=== PATIENT | male | born 1960 | race Caucasian/White ===

== ENCOUNTER → 2018-01-01 11:00 | Outpatient (CLI) | payer OTHER, SELFPAY ==
[2018-01-05 05:21] LABS: PSA, Free 0.54 ng/mL; Prostate Specific Ag 1.5 ng/mL (0.0-4.0)
== END ==
PROVIDERS: PCP Family Medicine; Visit Provider Urology
DX: R97.20 Elevated prostate specific antigen [PSA] (principal)
CPT/HCPCS: 36415; 84153; 84154

== ENCOUNTER → 2020-04-07 14:07 | Outpatient (CLI) | payer OTHER, SELFPAY ==
--- NOTE | 2020-04-07 14:16 | XR_ITS ---
PROCEDURE: XR HIP LT 2-3V W/PELVIS CLINICAL INDICATION: LT hip pain COMPARISON: No exams were available for comparison FINDINGS: No fracture or dislocation is evident. No significant degenerative change. There is mild sclerotic change of the left femoral head raising the possibility of avascular necrosis. The right femoral head and neck appear intact. The iliac bones and pubic bones appear normal. The SI joints and symphysis pubis are normal.. IMPRESSION: Possible mild avascular necrosis left hip, possibly follow-up of bone scan or CT scan of the pelvis would be helpful for additional evaluation Dictated by: Dr. Kev Solomon MD 04/07/2020 14:47 Dr. Kev Solomon MD in [place] 04/07/2020 14:47
== END ==
PROVIDERS: PCP Family Medicine; Visit Provider Orthopaedic Surgery
DX: M25.552 Pain in left hip (principal)
CPT/HCPCS: 73502

== ENCOUNTER → 2020-04-20 09:19 | Outpatient (CLI) | payer OTHER, SELFPAY ==
[2020-04-20 10:28] LABS: Blood Urea Nitrogen 14 mg/dl (9-20); Estimated Glomerular Filt Rate 98 ml/min (>60); GFR (African American) 119 ML/MIN (>60)
== END ==
PROVIDERS: Visit Provider Orthopaedic Surgery
DX: M87.052 Idiopathic aseptic necrosis of left femur (principal)
CPT/HCPCS: 36415; 82565; 84520

== ENCOUNTER → 2020-04-22 07:45 | Outpatient (CLI) | payer OTHER, SELFPAY ==
--- NOTE | 2020-04-22 07:45 | MR_ITS ---
PROCEDURE: MR HIP LT WO/W CON Referring Doctor: Sabi Young Patient Age:60Y CLINICAL INDICATION: left hip pain. Left hip pain for 3 months no recent injury or fall bilateral AVN. COMPARISON: CR XR HIP LT 2-3V W/PELVIS from 04/07/2020 TECHNIQUE: Multiplanar multi sequence imaging on 1.5 justo MRI. Pre and postcontrast imaging performed T1 fat suppression coronal and axial images postcontrast-17 mL ProHance used for postcontrast images IV contrast utilized FINDINGS: Findings are compatible with bilateral avascular necrosis of the femoral heads superiorly with additional prominent bone edema left hip/left trochanteric region Symptomatic LEFT HIP.: Geographic area of abnormal signal reflecting generous area AVN involving cap left femoral head. This areaand measures up to 3.6 cm transverse 2.4 cm height. Within this circumscribed area there is lower density fat signal on T1 images . (It appears a true T2 weighted images is no longer included of but this area somewhat mixed density on STIR images and thus suspect stage class A AVN here on left) However in addition on the left note prominent/significant bone reactive changes/and bone edema surrounding this area and continuing along through the left femoral neck, and extending to the trochanteric region and subtrochanteric region.. These reflect rather prominent bone edema/reactive bone changes here.. Along with this appearance also question a subtle questionable low signal transverse line at trochanteric/subtrochanteric region-could not totally exclude a developing stress fracture (coronal image 19 post-contrast fat suppression T1 image set) There is a joint effusion at the left hip which also correlates with increased pain and symptoms related AVN,. I would also note subtle slight reactive soft tissue edema surrounding the subtrochanteric region, axial STIR image 22-19 coronal STIR postcontrast image 17, 18 Postcontrast images show mild enhancement throughout these areas of edema and surrounding soft tissues as well reflecting the regional inflammation Difficult to totally exclude infection with the overall appearance and enhancement but most likely reactive bone changes from AVN but close follow-up and clinical correlation required RIGHT HIP: Geographic area of signal abnormality at the cap of right femoral head compatible with AVN right femoral head There is a low signal line about the margin of this area with fat density within it. No collapse of femoral head although. I do not have a true T2 weighted image for ideal staging, suspect most likely grade A AVN. But this area measuring up to 3.4 cm transverse 2 cm height maximally. It is not as large as the area on the left and we do not see the adjacent bone edema and the right femoral neck but trochanteric region unremarkable on right A generous wall thickness bladder warrants correlation with urinalysis but most likely reflects lack of distension. Moderate-sized high-signal prostate noted. Nonspecific Incidental diverticulosis sigmoid colon. Partially imaged what is visualized at the lower pelvic basin otherwise unremarkable. Iliac bones pubis superior and inferior ramus unremarkable. Remainder of visualized proximal femoral shafts below the subtrochanteric region otherwise appear satisfactory and IMPRESSION: Bilateral Avascular Necrosis Of Femoral Heads--most prominent findings seen at left hip, with associated prominent bone edema extending from left hip through left femoral neck-left trochanteric region -Specifically at left hip note prominent bone edema with joint effusion-these features at correlate with increased pain symptoms associated with AVN. The prominent bone edema and in
== END ==
PROVIDERS: PCP Family Medicine; Visit Provider Orthopaedic Surgery
DX: M87.052 Idiopathic aseptic necrosis of left femur (principal)
CPT/HCPCS: 73723; A9576

== ENCOUNTER → 2021-01-11 16:07 | Outpatient (CLI) | payer OTHER, SELFPAY ==
[2021-01-13 09:19] LABS: PSA, Free 0.54 ng/mL; Prostate Specific Ag 1.4 ng/mL (0.0-4.0)
== END ==
PROVIDERS: Visit Provider Urology
DX: N13.8 Other obstructive and reflux uropathy (principal); N40.1 Benign prostatic hyperplasia with lower urinary tract symptoms
CPT/HCPCS: 36415; 84153; 84154

== ENCOUNTER → 2021-02-13 13:31 | Outpatient (CLI) | payer OTHER, SELFPAY ==
--- NOTE | 2021-02-13 13:35 | XR_ITS ---
PROCEDURE: XR HIP LT 2-3V W/PELVIS CLINICAL INDICATION: LT hip pain COMPARISON: CR XR HIP LT 2-3V W/PELVIS from 04/07/2020 FINDINGS: No fracture or dislocation is evident. There has been interval change in the appearance of left hip from the previous study with a focal area of sclerosis of the femoral head by a radiolucent line suggesting beginning separation of the avascular fragment from the remainder of the femoral head. The avascular fragment approximates 1/3 of the volume of the femoral head. The right hip is intact. There are mild degenerate changes lower lumbar spine. IMPRESSION: Interval progression of avascular necrosis left hip compared with the previous study Dictated by: Dr. Kev Solomon MD 02/14/2021 08:53 Dr. Kev Solomon MD in [place] 02/14/2021 08:53
== END ==
PROVIDERS: PCP Family Medicine; Visit Provider Orthopaedic Surgery
DX: M25.552 Pain in left hip (principal); M87.052 Idiopathic aseptic necrosis of left femur
CPT/HCPCS: 73502

== ENCOUNTER → 2021-02-22 16:13 | Outpatient (CLI) | payer OTHER, SELFPAY ==
--- NOTE | 2021-02-22 16:16 | XR_ITS ---
PROCEDURE INFORMATION: Exam: XR Chest Exam date and time: 02/22/2021 4:16 PM Age: 60 years old Clinical indication: Other: Hypertension, HX of asthma; Patient HX: Patient to have hip surgery. ; Additional info: HX of high blood pressure, HX of asthma, preoperative TECHNIQUE: Imaging protocol: XR of the chest. Views: 2 views. COMPARISON: No relevant prior exams. FINDINGS: Lungs: Unremarkable. No consolidation. Pleural spaces: Unremarkable. No pleural effusion. No pneumothorax. Heart/Mediastinum: Unremarkable. No cardiomegaly. Bones/joints: Unremarkable. IMPRESSION: No acute cardiopulmonary disease.
--- NOTE | 2021-02-22 16:37 | ECG_ITS ---
APPROVED REPORT Exam: Resting ECG HR:72 bpm ECG Measurements Heart Rate 72 AXES TN 154 P 52 QRSd 96 QRS -21 QT 366 T 50 QTc 400 Conclusion Normal sinus rhythm Normal ECG Electronically signed by : John Nolasco MD 02/23/2021 22:38:28
[2021-02-22 17:21] LABS: Basophils # 0.1 K/mm3 (0-0.2); Basophils % 1.1 % (0.1-2.0); Eosinophils # 0.2 K/mm3 (0.0-0.4); Eosinophils % 2.1 % (0.1-12.0); Hematocrit 44.2 % (42.0-52.0); Hemoglobin 14.9 g/dL (14.1-18.0); Lymphocytes # 4.7 K/mm3 (0.7-4.5); Lymphocytes % 44.8 % (10-50); Mean Corpuscular HGB Conc 33.7 g/dL (31.8-35.4); Mean Corpuscular Hemoglobin 32.1 pg (27.0-31.2); Mean Corpuscular Volume 95.3 fl (80-94); Mean Platelet Volume 9.2 fl (7.4-10.4); Monocytes # 0.5 K/mm3 (0.1-1.0); Monocytes % 5.1 % (1.7-9.3); Neutrophils # 4.9 K/mm3 (1.8-7.8); Neutrophils % 46.9 % (37.0-80.0); Platelet Count 234 K/mm3 (142-424); Red Blood Count 4.64 M/mm3 (4.60-6.20); Red Cell Distribution Width 12.9 % (11.5-17.5); White Blood Count 10.5 K/mm3 (4.8-10.8)
[2021-02-22 17:28] LABS: INR 0.96 (0.9-1.1); Prothrombin Time 10.9 seconds (10.1-12.5)
[2021-02-22 17:37] LABS: Chloride 100 mmol/L (98-107)
[2021-02-22 17:38] LABS: Potassium 4.4 mmoL/L (3.5-5.1); Sodium 138 mmol/L (136-145)
[2021-02-22 17:40] LABS: Alanine Aminotransferase 33 U/L (12-78); Albumin Level 4.7 g/dl (3.5-5.0); Albumin/Globulin Ratio 1.7 (1.1-1.8); Alkaline Phosphatase 75 U/L (38-126); Anion Gap 15.4 mEq/L (5-15); Aspartate Amino Transferase 40 U/L (17-59); Bilirubin,Total 0.6 mg/dl (0.2-1.3); Blood Urea Nitrogen 11 mg/dl (9-20); Calcium 9.7 mg/dl (8.4-10.2); Carbon Dioxide 27 mmol/L (22.0-30.0); Cholesterol 225 mg/dl (140-200); Estimated Glomerular Filt Rate 168 ml/min (>60); GFR (African American) 204 ML/MIN (>60); Globulin 2.8 g/dL (1.3-3.2); Glucose 112 mg/dl (74-100); Total Protein,Serum 7.5 g/dl (6.3-8.2); Triglycerides 233 mg/dl (30-150); VLDL Cholesterol 47 mg/dL (0-40)
[2021-02-22 17:41] LABS: HDL Cholesterol 83 mg/dl (40-60)
[2021-02-22 17:48] LABS: Chol/HDL Ratio 2.7 (1-3.5)
[2021-02-22 17:52] LABS: Direct LDL Cholesterol 111.78 mg/dL (100-129)
[2021-02-22 18:11] LABS: Thyroid Stimulating Hormone 2.14 uIU/mL (0.465-4.68)
== END ==
PROVIDERS: PCP Family Medicine; Visit Provider Nurse Practitioner Family
DX: Z01.818 Encounter for other preprocedural examination (principal); I10 Essential (primary) hypertension; E78.2 Mixed hyperlipidemia; Z51.81 Encounter for therapeutic drug level monitoring
CPT/HCPCS: 36415; 71046; 80053; 80061; 84443; 85025; 85610; 93005

== ENCOUNTER → 2021-04-09 15:51 | Outpatient (CLI) | payer OTHER, SELFPAY ==
[2021-04-09 15:53] LABS: Microscopic, Urine URINE MICROSCOPIC (MICROSCOPIC)
[2021-04-09 16:18] LABS: Basophils # 0.1 K/mm3 (0-0.2); Eosinophils # 0.2 K/mm3 (0.0-0.4); Eosinophils % 2.1 % (0.1-12.0); Hemoglobin 14.6 g/dL (14.1-18.0); Lymphocytes # 5.1 K/mm3 (0.7-4.5); Lymphocytes % 46.7 % (10-50); Mean Corpuscular HGB Conc 34.8 g/dL (31.8-35.4); Mean Corpuscular Hemoglobin 32.3 pg (27.0-31.2); Mean Corpuscular Volume 92.9 fl (80-94); Mean Platelet Volume 8.7 fl (7.4-10.4); Monocytes # 0.6 K/mm3 (0.1-1.0); Monocytes % 5.2 % (1.7-9.3); Neutrophils # 4.9 K/mm3 (1.8-7.8); Platelet Count 207 K/mm3 (142-424); Red Blood Count 4.53 M/mm3 (4.60-6.20); Red Cell Distribution Width 12.8 % (11.5-17.5)
[2021-04-09 19:29] LABS: Chloride 100 mmol/L (98-107); Potassium 4.5 mmoL/L (3.5-5.1); Sodium 138 mmol/L (136-145)
[2021-04-09 19:31] LABS: Alanine Aminotransferase 29 U/L (12-78); Alkaline Phosphatase 67 U/L (38-126); Aspartate Amino Transferase 29 U/L (17-59); Bilirubin,Total 0.6 mg/dl (0.2-1.3); Blood Urea Nitrogen 15 mg/dl (9-20); Estimated Glomerular Filt Rate 114 ml/min (>60); GFR (African American) 138 ML/MIN (>60)
[2021-04-09 19:32] LABS: Albumin Level 4.7 g/dl (3.5-5.0); Albumin/Globulin Ratio 1.7 (1.1-1.8); Anion Gap 15.5 mEq/L (5-15); Calcium 9.6 mg/dl (8.4-10.2); Carbon Dioxide 27 mmol/L (22.0-30.0); Globulin 2.7 g/dL (1.3-3.2); Glucose 105 mg/dl (74-100); Total Protein,Serum 7.4 g/dl (6.3-8.2)
[2021-04-09 22:13] LABS: Appearance,Urine CLEAR (Clear); Bilirubin,Urine Negative (Negative); Blood, Urine Negative (Negative); Color,Urine YELLOW (Yellow); Glucose,Urine (UA) Negative (Negative); Ketones,Urine TRACE (Negative); Leukocyte Esterase,Urine Negative (Negative); Nitrate,Urine Negative (Negative); PH,Urine 6.5 (5.0-8.5); Protein,Urine Negative (Negative); Urobilinogen,Urine 0.2 EU/dl (0.2)
[2021-04-09 22:26] LABS: Bacteria,Urine Trace /lpf; RBC,Urine Occasional #/hpf (0-3); Sperm,Urine OCC /lpf; Squamous Epithelial Cell,Urine Occasional #/hpf (0-5)
== END ==
PROVIDERS: Visit Provider Orthopaedic Surgery
DX: Z01.818 Encounter for other preprocedural examination (principal); M87.059 Idiopathic aseptic necrosis of unspecified femur
CPT/HCPCS: 80053; 81001; 85025

== ENCOUNTER → 2021-04-21 09:40 | Outpatient (CLI) | payer OTHER, SELFPAY | PROVIDERS: Visit Provider Orthopaedic Surgery | DX: Z01.818 Encounter for other preprocedural examination (principal); Z11.52 Encounter for screening for COVID-19 | CPT/HCPCS: 36415; 86850; C9803; U0003; U0005 ==

== ENCOUNTER → 2021-06-13 16:02 | Outpatient (CLI) | payer OTHER, SELFPAY | PROVIDERS: Visit Provider Orthopaedic Surgery | DX: Z01.812 Encounter for preprocedural laboratory examination (principal) ==

== ENCOUNTER → 2021-06-16 09:56 | Outpatient (CLI) | payer OTHER, SELFPAY ==
[2021-06-16 10:12] LABS: Microscopic, Urine URINE MICROSCOPIC (MICROSCOPIC)
[2021-06-16 10:42] LABS: Basophils # 0.1 K/mm3 (0-0.2); Basophils % 0.7 % (0.1-2.0); Eosinophils # 0.2 K/mm3 (0.0-0.4); Eosinophils % 1.3 % (0.1-12.0); Hematocrit 42.9 % (42.0-52.0); Hemoglobin 14.5 g/dL (14.1-18.0); Lymphocytes # 4.7 K/mm3 (0.7-4.5); Lymphocytes % 36.5 % (10-50); Mean Corpuscular HGB Conc 33.9 g/dL (31.8-35.4); Mean Corpuscular Hemoglobin 31.7 pg (27.0-31.2); Mean Corpuscular Volume 93.6 fl (80-94); Mean Platelet Volume 8.5 fl (7.4-10.4); Monocytes # 0.8 K/mm3 (0.1-1.0); Monocytes % 6.3 % (1.7-9.3); Neutrophils # 7.1 K/mm3 (1.8-7.8); Neutrophils % 55.2 % (37.0-80.0); Platelet Count 207 K/mm3 (142-424); Red Blood Count 4.58 M/mm3 (4.60-6.20); Red Cell Distribution Width 12.6 % (11.5-17.5); White Blood Count 12.8 K/mm3 (4.8-10.8)
--- NOTE | 2021-06-16 10:58 | XR_ITS ---
PROCEDURE INFORMATION: Exam: XR Left Hip Exam date and time: 06/16/2021 10:58 AM Age: 61 years old Clinical indication: Screening exam; Pre-op; Additional info: Pre-op SX 06/25/21 TECHNIQUE: Imaging protocol: XR Left hip. Views: 2 or 3 views hip with pelvis when performed. COMPARISON: CR XR HIP LT 2-3V W/PELVIS 02/13/2021 1:52 PM FINDINGS: Bones/joints: Bilateral femoral head avascular necrosis with left femoral head fracture and degenerative change. Soft tissues: Skin folds. Vasculature: Vascular calcifications. Other findings: Prominent stool. IMPRESSION: Bilateral femoral head avascular necrosis with left femoral head fracture and degenerative change.
[2021-06-16 11:11] LABS: Chloride 99 mmol/L (98-107); Potassium 4.4 mmoL/L (3.5-5.1); Sodium 136 mmol/L (136-145)
[2021-06-16 11:13] LABS: Blood Urea Nitrogen 12 mg/dl (9-20); Estimated Glomerular Filt Rate 114 ml/min (>60); GFR (African American) 138 ML/MIN (>60)
[2021-06-16 11:14] LABS: Alanine Aminotransferase 21 U/L (12-78); Albumin Level 4.6 g/dl (3.5-5.0); Albumin/Globulin Ratio 1.7 (1.1-1.8); Alkaline Phosphatase 78 U/L (38-126); Anion Gap 12.4 mEq/L (5-15); Appearance,Urine CLEAR (Clear); Aspartate Amino Transferase 28 U/L (17-59); Bilirubin,Total 0.7 mg/dl (0.2-1.3); Bilirubin,Urine Negative (Negative); Blood, Urine TRACE-I (Negative); Calcium 9.2 mg/dl (8.4-10.2); Carbon Dioxide 29 mmol/L (22.0-30.0); Color,Urine YELLOW (Yellow); Globulin 2.7 g/dL (1.3-3.2); Glucose 110 mg/dl (74-100); Glucose,Urine (UA) Negative (Negative); Ketones,Urine Negative (Negative); Leukocyte Esterase,Urine Negative (Negative); Nitrate,Urine Negative (Negative); Protein,Urine Negative (Negative); Specific Gravity, Urine 1.025 (1.005-1.030); Total Protein,Serum 7.3 g/dl (6.3-8.2); Urobilinogen,Urine 0.2 EU/dl (0.2)
[2021-06-16 11:58] LABS: Bacteria,Urine Trace /lpf; WBC,Urine Occasional #/hpf (0-3)
== END ==
PROVIDERS: PCP Family Medicine; Referring Provider Orthopaedic Surgery; Visit Provider Orthopaedic Surgery
DX: Z01.818 Encounter for other preprocedural examination (principal); M87.052 Idiopathic aseptic necrosis of left femur
CPT/HCPCS: 36415; 73502; 80053; 81001; 85025

== ENCOUNTER → 2021-06-23 08:15 | Outpatient (CLI) | payer OTHER, SELFPAY ==
[2021-06-23 09:03] LABS: Basophils # 0.3 K/mm3 (0-0.2); Basophils % 2.2 % (0.1-2.0); Eosinophils # 0.4 K/mm3 (0.0-0.4); Lymphocytes # 5.1 K/mm3 (0.7-4.5); Mean Corpuscular HGB Conc 32.7 g/dL (31.8-35.4); Mean Corpuscular Hemoglobin 31.3 pg (27.0-31.2); Mean Corpuscular Volume 95.9 fl (80-94); Mean Platelet Volume 8.8 fl (7.4-10.4); Monocytes # 0.6 K/mm3 (0.1-1.0); Neutrophils # 6.4 K/mm3 (1.8-7.8); Neutrophils % 49.8 % (37.0-80.0); Platelet Count 343 K/mm3 (142-424); Red Cell Distribution Width 12.9 % (11.5-17.5); White Blood Count 12.8 K/mm3 (4.8-10.8)
== END ==
PROVIDERS: PCP Family Medicine; Visit Provider Orthopaedic Surgery
DX: Z01.812 Encounter for preprocedural laboratory examination (principal); Z11.52 Encounter for screening for COVID-19; M87.052 Idiopathic aseptic necrosis of left femur
CPT/HCPCS: 36415; 85025; 86850; C9803; U0003; U0005

== ENCOUNTER 2021-06-25 06:18 | Observation (INO) | payer OTHER, SELFPAY ==
[2021-06-25] VITALS (20 sets, daily range): BP systolic 97–164; BP diastolic 57–92; PULSE 82–115; RESP 12–18; TEMP 36.6–43; O2SAT 92–99; BMI 25.7; BMI 27.1
[2021-06-25 06:46] LABS: Coronavirus 19, PCR Not Detected (NotDetected); Influenza A, PCR Not Detected (NotDetected); Influenza B, PCR Not Detected (NotDetected)
--- NOTE | 2021-06-25 07:36 | HMH.PHAVTE ---
[facility] Pharmacy VTE Monitoring - Patient Demographics Admission date: 06/25/21 Report Date: 06/25/21 Time: 07:36 Allergies/Adverse Reactions: Patient Allergies No Known Allergies Allergy (Verified 06/25/21 06:23) Height: 1.83 m Weight: 90.718 kg - VTE Risk Clinical Trial Participant: No - Prophylaxis VTE Prophylaxis Ordered?: Yes Types of VTE Prophylaxis: TEDS Knee High
--- NOTE | 2021-06-25 09:43 | HMH.ANESCL ---
[facility] Anesthesia Checklist - Structural Data Admitted From: Home Planned Operative Procedure/s: l total hip Consent for Planned Operative Procedure(s) Verified: Yes - Additional verifications Anesthesia Reactions: No Hx Blood Transfusions: No Blood Transfusion Reaction: No - Airway Assessment C-Spine Mobility Assessed: Yes TMJ Mobility Assessed: Yes Dentition: Good Dentition - Neurological Assessment Level of Consciousness: Awake, Alert, Appropriate - Anesthesia Plan Anesthesia Risk discussed: Yes Anesthesia Plan: Verified ASA Class: II Anesthesia Type: MAC w/Spinal [facility] History I have reviewed the patient's past medical history: Yes Medical History: Reports:: BPH, Hyperlipidemia, Hypertension Denies:: Cancer, Diabetes Mellitus Type 1, Diabetes Mellitus Type 2, Internal Pacemaker, MRSA, Seizures *Have you ever received a pneumonia vaccine?: No *Have you received a flu vaccine this season?: Yes Other Medical History: Reports: Arthritis. Denies: Blood Transfusion Reaction Anesthesia experience/problems:: none Laterality Cases: Bilateral: Tonsillectomy Other Surgeries: Yes: No Previous Surgery, Colonoscopy, Other. No: Pacemaker Amputation: No Fractures: No - *Social History Last grade of school completed: High school graduate Smoking Status: Former smoker Tobacco Type: cigars #Yrs smoked (if former smoker): 5 Smoking End Date: 1996 Alcohol Intake: current Alcohol Intake Frequency:: holidays/special occasions only Substance Use Type: denies use *Occupational Status:: employed Housing: house Household Members: spouse *Travel in the last 8 weeks: None Family Hx:: Cancer, Diabetes, Hypertension
--- NOTE | 2021-06-25 09:47 | HMH.PHAINT ---
home medication list verified using list from outpatient pharmacy and list from Dr Roblero' office
--- NOTE | 2021-06-25 10:08 | SUR.OPER ---
0913 family provided with an update
--- NOTE | 2021-06-25 11:19 | SUR.OPER ---
1112 family provided with an update
--- NOTE | 2021-06-25 12:18 | P.PN_ITS ---
[facility] Anesthesia Record Part I Intake, IV Amount: 3,000 Estimated blood loss (mL): 200 Urine output (mL): 700 Blood Pressure: 108/60 SaO2: 95 Pulse Rate: 98 Respiratory Rate: 12 Temperature: 98.2 F Patient is:: Awake, Stable Stable to PACU at:: 12:15
--- NOTE | 2021-06-25 12:24 | XR_ITS ---
FINAL REPORT CLINICAL HISTORY: post surgical..lt hip replacement COMPARISON: June 16, 2021 FINDINGS: LEFT HIP: Two views of the left hip demonstrate no acute fracture or dislocation. There are postoperative changes from left hip arthroplasty. There is soft tissue air. IMPRESSION: Postoperative change from left hip arthroplasty. Reviewed, Interpreted and Dictated by Carmine Jefferson III, MD Transcribed by Raul Goodwin Authenticated by Carmine Jefferson III, MD on 06/25/2021 01:11:18 PM [facility]
--- NOTE | 2021-06-25 12:31 | HMH.OPNOTE ---
Date of procedure: 06/25/21 Pre-op Diagnosis:: 1. Avascular necrosis of femoral head, left hip 2. Secondary osteoarthritis, left hip Post-op Diagnosis:: Same Procedure performed:: Uncemented total hip arthroplasty, left hip Surgeon:: Tr Mcdaniels MD Seasoning Sprayer(s):: Linda Keith PA-C QUALITY CONTROL ANALYST:: Tony Mckeon Anesthesia: spinal, LMA Estimated blood loss (mL): 200 Clinical Note:: Patient is a 61-year-old male with advanced avascular necrosis of the left femoral head with secondary degenerative arthritis of the LEFT hip unresponsive to conservative management. Patient is having severe pain and significant disability and has not responded well to conservative management. His mobility, ability to work, and quality of life is impacted. The pain is also affecting his lifestyle, activities of daily living and his sleep. Therefore, a total hip arthroplasty is indicated to relieve pain and to reduce the disability and risk of falls. Please refer to my office note for full details. Operative findings:: Preoperative examination and x-ray findings were consistent with the above diagnosis. Intraoperatively, the femoral head is arthritic and misshapen and osteophytes were noted on both the acetabular and the femoral side. The capsule/soft tissues are thickened and contracted. The bone quality is good. Operative note:: On the day of the procedure the patient was met in the preoperative area and the patient was positively identified. A physical examination was performed and documented. The operative site was appropriately marked and initialed by me. I again reviewed the diagnosis, natural history and management options in detail including both nonsurgical and surgical. We discussed the proposed surgery, risks and benefits and alternatives in detail. The complications discussed include but are not limited to infection, bleeding, injury to nerves, blood vessels and tendons, DVT and PE, fracture, limb length inequality, dislocation, implant malpositioning, implant failure, squeaking, loosening, acetabular wear, osteolysis, periprosthetic femur fracture, heterotopic ossification, abductor weakness and limp, incomplete relief of pain, incomplete recovery of function, chronic pain, likely need for further surgery in future including revision, anesthetic complications including heart attack, stroke and even . We also discussed the postoperative recovery and rehabilitation. Patient verbalized a good understanding and wished to proceed with the proposed surgery. Patient understood the risks, agreed to proceed with surgery and no guarantees or assurances were given or implied. The patient was brought to the operating room and a spinal anesthesia was administered by the price accuracy supervisor. The patient was then positioned in the RIGHT lateral decubitus position with the LEFT hip facing up. We used Wixon hip positioner for this. All the bony prominences were appropriately padded. The LEFT hip was then prepped with isopropyl alcohol followed by chlorhexidine and draped in the usual sterile fashion. The entire operative team wore isolation suits and the Operating Room traffic was controlled. The skin incision was marked for a posterior approach to the hip joint. The perineum and the operative site were sealed off with Ioban drape. A preprocedure timeout was performed as per hospital protocol identifying the patient, correct surgery and correct site. Administration of prophylactic antibiotics (IV Ancef and vancomycin) was confirmed with the price accuracy supervisor. Before completion of the procedure 1 more gram of IV Ancef was administered as the operating time was over 2 hours. We have also administered IV tranexamic acid just before the incision and another dose at the end of the procedure, to reduce the otto-operative bleeding. A posterior approach was used to the LEFT hip joint. The skin incision was made centering over the posterior part of the greater trochanter extending posteriorly in a curved fas
--- NOTE | 2021-06-25 15:36 | HMH.ORTHHP ---
*Admission Date: 06/25/21 *Reason for consult:: Total hip arthroplasty, left *History of present illness: Patient is a 61-year-old male admitted to the acute inpatient service today 06/25/2021 after an uneventful left total hip arthroplasty. 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 MRI scan of the pelvis in April 2020 demonstrates bilateral femoral head avascular necrosis with the left side being somewhat more advanced than the right; he is asymptomatic with the right hip. He states that his left hip pain has been present for more than a year and is gradually getting worse as he is now having difficulty walking. He reports that when his pain is severe enough he uses a walker to mobilize with. He localizes his pain to the anterior aspect of his left hip with radiation into the upper thigh. He states that the pain is variable and while at times he has no pain at rest, at worst he rates his pain a 10 out of 10. He states that the pain has increasingly begun to impact his mobility and interfere with his activities of daily living. He also reports night pain and frequent sleep disturbances. He reports that standing for long periods of time, walking, and twisting/turning aggravate his pain. His pain has failed to respond satisfactorily to conservative measures including naproxen, rest, aspirin, and activity modification. No history of any known injury or chronic/excessive alcohol abuse. He does report that he has had several courses of steroids in the past for medical issues. He denies any history of distal tingling/numbness, knee pain, or back pain. 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 His past medical history is significant for hypertension, hyperlipidemia, BPH, and arthritis. Total hip arthroplasty is indicated to reduce the risks of falls, as well as improve his pain, mobility, and quality of life. The surgical and nonsurgical alternatives were discussed in detail with the patient as well as the risks and benefits of surgery. This afternoon postoperatively, the patient is lying comfortably in bed and his is present at the bedside. He reports that his lower extremities still feel somewhat numb secondary to receiving spinal anesthesia prior to surgery. He denies any nausea or vomiting and states that he is eating/drinking well. He denies any other symptoms/concerns at this time. [facility] History Medical History: Reports:: BPH, Hyperlipidemia, Hypertension Denies:: Cancer, Diabetes Mellitus Type 1, Diabetes Mellitus Type 2, Internal Pacemaker, MRSA, Seizures *Have you ever received a pneumonia vaccine?: No *Have you received a flu vaccine this season?: Yes Other Medical History: Reports: Arthritis. Denies: Blood Transfusion Reaction Anesthesia experience/problems:: none Laterality Cases: Bilateral: Tonsillectomy Other Surgeries: Yes: No Previous Surgery, Colonoscopy, Other. No: Pacemaker Amputation: No Fractures: No - *Social History Last grade of school completed: High school graduate Smoking Status: Former smoker Tobacco Type: cigars #Yrs smoked (if former smoker): 5 Smoking End Date: 1996 Alcohol Intake: current Alcohol Intake Frequency:: holidays/special occasions only Substance Use Type: denies use *Occupational Status:: employed Housing: house Household Members: spouse *Travel in the last 8 weeks: None Family Hx:: Cancer, Diabetes, Hypertension Review of Systems - Review of Systems Review of systems:: pertinent systems reviewed and negative unless documented below - Constitutional Denies anorexia, Denies body ache(s), Denies chills, Denies fatigue, Denies fever(s), Denies headache(s), Denies night sweats, Denies weakness - Eyes Denies blind spots, Denies blurry vision, Denies change in vision, Denies loss of vision - ENT Denies abnormal hearing, Denies poor balance, Denies dizziness, Denies difficulty swallowing, Denies h
[2021-06-25 16:19] LABS: Microscopic,Cath URINE MICROSCOPIC (MICROSCOPIC)
[2021-06-25 16:23] LABS: Appearance,Urine/Cath CLEAR (Clear); Bilirubin,Cath Negative (Negative); Blood, Urine/Cath 1+ (Negative); Color,Urine/Cath YELLOW (Yellow); Glucose,Urine/Cath (UA) Negative (Negative); Ketones,Urine/Cath Negative (Negative); Leukocyte Esterase,Cath Negative (Negative); Nitrate,Cath Negative (Negative); Protein,Urine/Cath Negative (Negative); Specific Gravity, Urine/Cath 1.025 (1.005-1.030); Urobilinogen,Cath 0.2 EU/dl (0.2)
[2021-06-26] VITALS: BP 99/58; PULSE 109; RESP 19; TEMP 37.8; O2SAT 92
[2021-06-26 04:00] VITALS: BP 126/73; PULSE 83; RESP 18; TEMP 37.1; O2SAT 94
[2021-06-26 05:58] VITALS: O2SAT 95
[2021-06-26 06:12] LABS: Basophils # 0.1 K/mm3 (0-0.2); Basophils % 0.6 % (0.1-2.0); Eosinophils # 0.1 K/mm3 (0.0-0.4); Eosinophils % 0.6 % (0.1-12.0); Hematocrit 39.2 % (42.0-52.0); Hemoglobin 12.4 g/dL (14.1-18.0); Lymphocytes # 3.2 K/mm3 (0.7-4.5); Lymphocytes % 21.3 % (10-50); Mean Corpuscular HGB Conc 31.6 g/dL (31.8-35.4); Mean Corpuscular Hemoglobin 31.3 pg (27.0-31.2); Mean Corpuscular Volume 98.8 fl (80-94); Mean Platelet Volume 8.9 fl (7.4-10.4); Monocytes # 0.8 K/mm3 (0.1-1.0); Monocytes % 5.6 % (1.7-9.3); Neutrophils # 10.8 K/mm3 (1.8-7.8); Neutrophils % 72.1 % (37.0-80.0); Platelet Count 219 K/mm3 (142-424); Red Blood Count 3.97 M/mm3 (4.60-6.20)
[2021-06-26 06:21] LABS: MANUAL DIFFERENTIAL MANUAL DIFFERENTIAL (MANUAL DIFF)
[2021-06-26 06:22] LABS: Anion Gap 8.9 mEq/L (5-15); Blood Urea Nitrogen 13 mg/dl (9-20); Calcium 8.7 mg/dl (8.4-10.2); Carbon Dioxide 31 mmol/L (22.0-30.0); Chloride 100 mmol/L (98-107); Creatinine Clearance Estimated 97 mL/min (50-200); Estimated Glomerular Filt Rate 114 ml/min (>60); GFR (African American) 138 ML/MIN (>60); Glucose 141 mg/dl (74-100); Potassium 4.9 mmoL/L (3.5-5.1); Sodium 135 mmol/L (136-145)
[2021-06-26 07:52] VITALS: BP 125/86; PULSE 85; RESP 18; TEMP 36.5; O2SAT 95
[2021-06-26 08:31] LABS: Lymphocytes % 20 % (10-50); Monocytes % 9 % (2-9); Neutrophils % 71 % (42-76); Platelet Estimate Normal; Total Cells Counted 100
--- NOTE | 2021-06-26 09:50 | HMH.PTEV ---
Physical Therapy Evaluation Rehab PT IP Evaluation Start: 06/25/21 12:15 Freq: ONCE Status: Active Protocol: Document 06/26/21 09:46 CHRISTOS (Rec: 06/26/21 09:50 CHRISTOS [id number]) Subjective/History History History This is the initial IP PT evalaution for Daniel Osorio . Pt is a 61 y/o male admitted to [facility] s/p L BETY. Pt had hx of avascular necrosis w/ failed conservative treatment Subjective Subjective c/o pain w/ movement Rehab PT IP Eval Objective Appearance Patient Behavior Appropriate,Cooperative Patient Orientation Name,Birthday,Year,Situation Difficulty following instructions none Speech Pattern Clear,Appropriate Ambulation Patient Able to Ambulate Yes Ambulation Observation IP General Gait Pattern Observation Antalgic Gait,Decrease Weight Bear (L) Ambulation Distance (feet) 20 Ambulation Assistive Device Rolling Walker Ambulation Ability Contact Guard/Hand Hold Balance Ability to Arise Able, uses arms to help Sitting Balance Steady, safe Standing Balance Steady, wide stance Dynamic Sitting Balance Ability Good Dynamic Standing Balance Ability Fair Transfers Bed Transfer Ability Contact Guard/Hand Hold Chair Transfer Ability Contact Guard/Hand Hold Sit to Stand Bed Transfer Ability Contact Guard/Hand Hold Sit to Stand Chair Transfer Ability Contact Guard/Hand Hold Rehab PT IP prob,goals,plan Problems Date of Evaluation: 06/26/21 PT IP Problems Bed Mobility,Transfers,Gait, Balance,Self care,Safety Rehab Potential Rehab Potential Good Equipment Needs Assistive Devices Rolling / Wheeled Walker Plan PT Intervention Plan Bed Mobility,Transfers,Gait, Balance,Self care,Safety, Therapeutic Exercise PT Plan Frequency BID Duration LOS Discharge Goals Bed Transfer Ability Contact Guard/Hand Hold Sit to Stand Chair Transfer Ability Contact Guard/Hand Hold Ambulation Assistive Device Rolling Walker Ambulation Distance (feet) 20 Discharge Plan PT Discharge Plan Pt will benefit from skilled therapy while in [facility]. After dc pt will continue to need skilled therapy and assistance for ADL's and mobility. This can be accomplished at home w
--- NOTE | 2021-06-26 09:57 | HMH.OTEV ---
OT Inpatient Evaluation Rehab OT IP Evaluation Start: 06/25/21 12:15 Freq: ONCE Status: Complete Protocol: Document 06/26/21 09:[facility] (Rec: 06/26/21 09:57 [facility] [id number]) Rehab OT IP Assessment Subjective History Pt oriented x 4 on arrival. Pt agreeable to engage in therapy evaluation. Pt was admitted on 06/25/21 following a total hip arthroplasty, left. Prior to being admitted to the hosptial he lived at home with his . He claims he was completely independent with all ADLs and IADLs. He still worked fulltime at [employer]. He drove independently. He did not require AE during ambulation. The following information was copied from history and physical report: Patient is a 61-year-old male admitted to the acute inpatient service today 2021 after an uneventful left total hip arthroplasty. He is known to have fairly advanced avascular necrosis of the left femoral head with secondary degenerative changes . MRI scan of the pelvis in April 2020 demonstrates bilateral femoral head avascular necrosis with the left side being somewhat more advanced than the right; he is asymptomatic with the right hip. He states that his left hip pain has been present for more than a year and is gradually getting worse as he is now having difficulty walking. He reports that when his pain is severe enough he uses a walker to mobilize with . He localizes his pain to the anterior aspect of his left hip with radiation into the upper thigh. He states that the pain is variable and
--- NOTE | 2021-06-26 09:58 | P.PN_ITS ---
[facility] Anesthesia Record Part II Discharge Time: 12:45 Destination: Medical Surgical Department PACU nurse assessment reviewed?: Yes Patient Condition:: Good Anesthesia Complications:: None Swallowing reflex intact?: Yes Cyanosis?: No Blood Pressure: 105/66 Pulse Rate: 89 Temperature: 98.3 F Mental Status: Alert & Oriented Pain level:: 0 Nausea and/or vomitting:: None Intake, IV Amount: 0
[2021-06-26 09:59] VITALS: BP 105/66; PULSE 89; TEMP 36.8
--- NOTE | 2021-06-26 10:00 | HMH.OTEV ---
OT Inpatient Evaluation Rehab OT IP Evaluation Start: 06/25/21 12:15 Freq: ONCE Status: Complete Protocol: Document 06/26/21 09:51 [facility] (Rec: 06/26/21 09:57 [facility] [id number]) Rehab OT IP Assessment Subjective History Pt oriented x 4 on arrival. Pt agreeable to engage in therapy evaluation. Pt was admitted on 06/25/21 following a total hip arthroplasty, left. Prior to being admitted to the hosptial he lived at home with his . He claims he was completely independent with all ADLs and IADLs. He still worked fulltime at [employer]. He drove independently. He did not require AE during ambulation. The following information was copied from history and physical report: Patient is a 61-year-old male admitted to the acute inpatient service today 2021 after an uneventful left total hip arthroplasty. He is known to have fairly advanced avascular necrosis of the left femoral head with secondary degenerative changes . MRI scan of the pelvis in April 2020 demonstrates bilateral femoral head avascular necrosis with the left side being somewhat more advanced than the right; he is asymptomatic with the right hip. He states that his left hip pain has been present for more than a year and is gradually getting worse as he is now having difficulty walking. He reports that when his pain is severe enough he uses a walker to mobilize with . He localizes his pain to the anterior aspect of his left hip with radiation into the upper thigh. He states that the pain is variable and
--- NOTE | 2021-06-26 10:02 | HMH.ORTHPN ---
Subjective Date: 06/26/21 <Linda Keith - 06/26/21 10:02> Time: 08:30 <Linda Keith - 06/26/21 10:02> Principal diagnosis: S/p left total hip arthroplasty <SagarLinda - 06/26/21 10:02> Interval history: Patient is a 61-year-old male who underwent an uneventful left total hip arthroplasty yesterday 06/25/2021. Today he is postop day #1. This morning the patient is lying comfortably in bed and physical therapy is at the bedside. He has not yet been up to ambulate. He reports that he is eating and drinking well and denies any episodes of nausea/vomiting. He states that he is having some pain in his left hip as to be expected at this stage but reports that it is well controlled with pain medication. He states that he was able to get some rest last night and denies any chest pain, shortness of breath, palpitations, fever, rigors, chills, distal tingling/numbness, or any other symptoms/concerns at this time. <Linda Keith - 06/26/21 14:34> PN: Obj Ex Vital signs: Temp Pulse Resp BP Pulse Ox 99.1 F 98 H 14 119/77 93 L 06/26/21 11:34 06/26/21 11:34 06/26/21 11:34 06/26/21 11:34 06/26/21 11:34 <Michael Mcdanielsan Fredi - 06/26/21 16:39> Temp Pulse Resp BP Pulse Ox 98.3 F 89 18 105/66 L 95 06/26/21 09:59 06/26/21 09:59 06/26/21 07:52 06/26/21 09:59 06/26/21 07:52 <Linda Keith - 06/26/21 10:02> Narrative: Laboratory Results - last 24 hr 06/25/21 07:59: Urine RBC 3-5, Urine WBC None, Ur Squamous Epith Cells None, Urine Bacteria None 06/26/21 05:30: WBC 15.0 H, RBC 3.97 L, Hgb 12.4 L, Hct 39.2 L, MCV 98.8 H, MCH 31.3 H, MCHC 31.6 L, RDW 13.0, Plt Count 219 D, MPV 8.9, Neut % (Auto) 72.1, Lymph % (Auto) 21.3, Caswell % (Auto) 5.6, Eos % (Auto) 0.6, Baso % (Auto) 0.6, Neut # (Auto) 10.8 H, Lymph # (Auto) 3.2, Caswell # (Auto) 0.8, Eos # (Auto) 0.1, Baso # (Auto) 0.1, Total Counted 100, Neutrophils % (Manual) 71, Lymphocytes % (Manual) 20, Monocytes % (Manual) 9, Platelet Estimate Normal 06/26/21 05:30: Sodium 135 L, Potassium 4.9, Chloride 100, Carbon Dioxide 31 H, Anion Gap 8.9, BUN 13, Creatinine 0.70, Estimated Creat Clear 97, Estimated GFR 114, Est GFR ( Am) 138, Glucose 141 H, Calcium 8.7 Intake & Output 06/24/21 06/25/21 06/26/21 06/27/21 11:59 11:59 11:59 11:59 Intake Total 4202 / 4202 1163 / 1163 Output Total 1850 / 1850 Balance 2352 / 2352 1163 / 1163 Weight 200 lb <ArslanTr Fredi - 06/26/21 16:39> - Constitutional no acute distress, average body habitus, cooperative <Linda Keith 06/26/21 13:23> - Routine HEENT Exam Head: Present: normocephalic, atraumatic <Linda Keith - 06/26/21 13:23> Eye: Present: EOMI, PERRL <Linda Keith 06/26/21 13:23> ENT: Present: mucous membranes moist <Linda Keith 06/26/21 13:23> - Routine Neck Exam Present: supple, full ROM, trachea midline. Absent: JVD, lymphadenopathy <Linda Keith 06/26/21 13:23> - Routine Respiratory Exam Absent: accessory muscle use, respiratory distress <Linda Keith 06/26/21 13:23> Comments: Symmetric chest movement, able to speak in complete sentences <Linda Keith 06/26/21 13:23> - Routine Cardiovascular Exam Present: RRR <Linda Keith 06/26/21 13:23> Comments: Normal peripheral pulses <Linda Keith 06/26/21 13:23> - Routine Abdominal Exam Present: soft. Absent: tenderness <Linda Keith 06/26/21 13:23> - Routine Extremities Exam Comments: Upon exam of the lower extremities: The left leg appears slightly longer than the left by approximately 0.5 cm. Upon examination of the left hip, dressings present are clean, dry, and intact. No evidence of drainage or bleeding noted. The surgical incision appears clean and healthy. No erythema, induration, purulent drainage, bleeding, or other signs of infection noted. The left hip and proximal femur are tender to palpation. Attempted movements of the left hip are somewhat pain
--- NOTE | 2021-06-26 11:22 | CARE MANAGER ---
Addendum entered by Julia Leach RN 06/26/21 13:48: CM met with patient again r/t patient deciding to go with outpatient PT. First appointment has been made for 06/28 @ 1400, and patient is aware. Original Note: Met with patient to discuss discharge planning. Patient states that he feels like he is doing well and plans to return home with either HH services or outpatient PT orders. Patient's was at bedside and states that she returns to work next week and will only be able to transport patient to outpatient PT after 1530 during the week. Patient has a standard walker at home and states that he does not want a rolling walker. Patient also states that he does not want a BSC. CM will continue to follow for discharge planning needs.
[2021-06-26 11:34] VITALS: BP 119/77; PULSE 98; RESP 14; TEMP 37.3; O2SAT 93
--- NOTE | 2021-06-26 14:23 | PC.NURSE ---
Pt off floor for heart cath
--- NOTE | 2021-06-26 15:14 | HMH.DCSUM ---
General - General Admission date:: 06/25/21 Discharge date: 06/26/21 HPI HPI: Patient is a 61-year-old male admitted to the acute inpatient service 06/25/2021 after an uneventful left total hip arthroplasty. 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 MRI scan of the pelvis in April 2020 demonstrates bilateral femoral head avascular necrosis with the left side being somewhat more advanced than the right; he is asymptomatic with the right hip. He states that his left hip pain has been present for more than a year and is gradually getting worse as he is now having difficulty walking. He reports that when his pain is severe enough he uses a walker to mobilize with. He localizes his pain to the anterior aspect of his left hip with radiation into the upper thigh. He states that the pain is variable and while at times he has no pain at rest, at worst he rates his pain a 10 out of 10. He states that the pain has increasingly begun to impact his mobility and interfere with his activities of daily living. He also reports night pain and frequent sleep disturbances. He reports that standing for long periods of time, walking, and twisting/turning aggravate his pain. His pain has failed to respond satisfactorily to conservative measures including naproxen, rest, aspirin, and activity modification. No history of any known injury or chronic/excessive alcohol abuse. He does report that he has had several courses of steroids in the past for medical issues. He denies any history of distal tingling/numbness, knee pain, or back pain. 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. His past medical history is significant for hypertension, hyperlipidemia, BPH, and arthritis. Total hip arthroplasty is indicated to reduce the risks of falls, as well as improve his pain, mobility, and quality of life. The surgical and nonsurgical alternatives were discussed in detail with the patient as well as the risks and benefits of surgery. Hospital Course Hospital Course: Following an uncomplicated left total hip arthroplasty the patient was admitted to the hospital and has progressed well. The postoperative check x-ray was satisfactory with good alignment and fixation of the orthopedic components. Patient was advised to ambulate weightbearing as tolerated on the left side; patient managed this very well using the walker. He states that his pain is well controlled with oral pain medication. The surgical incision appears clean and healthy without any evidence of discharge, bleeding, erythema, drainage, or other signs of infection. Distal neurovascular status is intact and no clinical signs of DVT are present. He has been eating and drinking well without any episodes of nausea/vomiting. Patient is medically stable at the time of discharge and was cleared for discharge by Dr. Mcdaniels and also by the physical therapist. His surgical dressings were changed on postop day #1 and the surgical incision appears healthy and is healing well. Patient was started on Xarelto 10 mg daily for DVT prophylaxis after surgery. The patient's vital signs have been stable throughout his admission and he is afebrile at the time of discharge. Patient is being discharged home with outpatient physical therapy. Treatments and Procedures: 1. Total hip arthroplasty, left; date of surgery 06/25/2021 Objective Vital signs: Temp Pulse Resp BP Pulse Ox 99.1 F 98 H 14 119/77 93 L 06/26/21 11:34 06/26/21 11:34 06/26/21 11:34 06/26/21 11:34 06/26/21 11:34 no acute distress, average body habitus, cooperative - *Routine HEENT Exam Head: Present: normocephalic, atraumatic Eye: Present: EOMI, PERRL ENT: Present: mucous membranes moist - *Routine Neck Exam Present: supple, full ROM, trachea midline. Absent: JVD, lymphadenopathy - *Routine Respiratory Exam Present: CTA bilaterally.
--- NOTE | 2021-06-26 15:50 | HMH.PHAINT ---
Discharge counseling complete. Informed pt to hold aspirin. Informed pt of new medications, purpose, how to take, and potential side effects. Pt seemed to be under the impression he was supposed to be discharged with antibiotics, and I informed him I was not aware. Other than that, pt had no questions or concerns.
--- NOTE | 2021-06-27 11:20 | CARE MANAGER ---
Addendum entered by Yoli Samano RN 06/27/21 11:46: Contacted patient regarding follow up from discharge. Patient states he has gotten himself up 3 times and walked to the back of the house. He was able to bulk picker all his prescriptions and has no questions regarding those. He is aware of therapy appointment and denies any questions or concerns. SHANNAN Pretty Original Note: Attempted to contact patient related to discharge from hospital at [phone] and left voicemail message for return call. Also attempted [phone] and no voicemail available. SHANNAN Pretty
== END 2021-06-26 17:00 | disposition home or self-care (01) ==
LOC: ICU 06-26 07:23
PROVIDERS: Physician Assistant Surgical; Admitting Provider Orthopaedic Surgery; PCP Family Medicine; Visit Provider Orthopaedic Surgery
PROC: (CPT 27130; principal; 2021-06-25 07:30)
DX: M16.12 Unilateral primary osteoarthritis, left hip (principal); M87.852 Other osteonecrosis, left femur; I10 Essential (primary) hypertension; E78.5 Hyperlipidemia, unspecified; Z20.822 Contact with and (suspected) exposure to COVID-19; Z79.899 Other long term (current) drug therapy
CPT/HCPCS: 27130; 36415; 73502; 80048; 81001; 85007; 85025; 94640; 96374; 97110; 97116; 97162; 97166; C1713; C1776; C9803; G0378; U0003; U0005

== ENCOUNTER → 2021-07-10 12:27 | Outpatient (CLI) | payer OTHER, SELFPAY ==
--- NOTE | 2021-07-10 12:31 | XR_ITS ---
FINAL REPORT CLINICAL HISTORY: post-op 2 week follow-up FINDINGS: LEFT HIP 2 views were obtained. The patient is status post left total hip prosthesis. The hardware appears intact. There is no acute abnormality. IMPRESSION: Left total hip prosthesis with no hardware complication. Reviewed, Interpreted and Dictated by Ean Villarreal MD Transcribed by Naima Donovan Authenticated by Ean Villarreal MD on 07/10/2021 01:54:04 PM [facility]
== END ==
PROVIDERS: PCP Family Medicine; Visit Provider Orthopaedic Surgery
DX: M25.552 Pain in left hip (principal); Z96.642 Presence of left artificial hip joint
CPT/HCPCS: 73502

== ENCOUNTER → 2021-08-07 14:12 | Outpatient (CLI) | payer OTHER, SELFPAY ==
--- NOTE | 2021-08-07 14:15 | XR_ITS ---
FINAL REPORT CLINICAL HISTORY: s/p sx Lt BETY on 06/25/2021 COMPARISON: June 25, 2021 FINDINGS: LEFT HIP Two views of the left hip with an AP pelvis demonstrate left hip arthroplasty without evidence of complication. There is a mixed lytic and sclerotic area in the superior right femoral head which is worrisome for avascular necrosis. The visualized bony structures are well aligned. No soft tissue abnormality is seen. IMPRESSION: Left hip arthroplasty without evidence of complications. Findings are worrisome for avascular necrosis in the right femoral head. Reviewed, Interpreted and Dictated by Carmine Jefferson III, MD Transcribed by Ana Frankel Authenticated by Carmine Jefferson III, MD on 08/07/2021 03:35:18 PM [facility]
== END ==
PROVIDERS: PCP Family Medicine; Visit Provider Orthopaedic Surgery
DX: M25.552 Pain in left hip (principal); Z96.642 Presence of left artificial hip joint
CPT/HCPCS: 73502

== ENCOUNTER 2021-08-24 16:00 | Outpatient (RCR) | payer OTHER, SELFPAY ==
--- NOTE | 2021-06-28 14:30 | HMH.PTOPEV ---
PT Outpatient Evaluation Rehab PT Outpatient Evaluation Start: 06/28/21 14:01 Freq: Status: Active Protocol: Document 06/28/21 14:21 [facility] (Rec: 06/28/21 14:30 PHORTAMANNA [id number]) Electronically Signed By Josué Hathaway, PT 06/28/21 14:21 Outpatient Therapy Subjective History Subjective History Pt is 61 yowm who presents ~ 3 days S/P L BETY with expected post-op pain, stiffness, and weakness. He reports he has been working on transfering sit/stand at home independently and improving his gait with SW. He reports pain in the L hip worse with transfers, but minimal with sitting. He reports PMH of Asthma and HTN. Chief Complaint Pain,Stiff,Weakness Symptom Type Ache Symptoms Relieved By Rest/Positioning Symptoms Aggravated By Physical Activity Prior Functional Limitations None Current Functional Limitations Dressing,Standing,Recreation Activity,Walking Symptom Description Intermittent,Activity Dependent Level of pain today (0-10) 2 Pain scale - at its best (0-10) 0 Pain scale - at its worst (0-10) 8 Hip/Knee Eval Gait Observation General Gait Pattern Observation Antalgic Gait Assistive Device Assistive Devices Standard Walker Palpation Tenderness left Hip Palpation Findings Tenderness MMT Hip Flexion Strength Grade 2+ Poor+ Hip Abduction Strength Grade 2+ Poor+ Hip Adduction Strength Grade 2+ Poor+ Hip Extension Strength Grade 2+ Poor+ Knee Extension Strength Grade 3+ Fair+ Knee Flexion Strength Grade 3+ Fair+ Outpatient Therapy Assessment Impairments Problems/Impairmments Palpation Tenderness,Impaired Range of Motion,Impaired Strength,Impaired Endurance, Impaired Transfers,Impaired Gait Pattern,Impaired Walking, Impaired Standing,Impaired Driving,Impaired Shower/ Bathing,Impaired Household Care,Impaired Recreational Activities,Subjective C/O Pain ,Impaired Self Care/Self Management Prognosis Rehab Potential Good Clinical Impression Consistent with Diagnosis Yes Short Term Goals Number of Weeks
--- NOTE | 2021-07-30 14:24 | HMH.RHREAS ---
Rehab Reassessment Rehab OP Re-assessment Start: 07/30/21 14:20 Freq: Status: Active Protocol: Document 07/30/21 14:21 [facility] (Rec: 07/30/21 14:24 PHORTAMANNA [id number]) Electronically Signed By Josué Hathaway, PT 07/30/21 14:21 Rehab Re-assessment Subjective Subjective Pt reports, I don't really have any pain anymore, just stiffness. Objective Objective Notes MMT L LE: Hip grossly 4/5 throughout. Knee FLEX/EXT 5/5 ea. Gait: Mild R lateral lean with stance phase on L LE. Assessment Progress Assessment Progressing as Expected Assessment Notes Pt has shown significant improvements in strength and pain over the past 2-3 wks. He has shown much better gait pattern, but needs to increase L hip strength more. Patient goals met ST,2,3,4,5 Goals Not Met LT,2,3,4,5,6 Revised Goals none Plan Plan Continue per initial POC. Frequency of Therapy 2 x/wk Duration of therapy 2-4 wks Time and Billing Re-Eval Time 14 Re-Eval Billing Units 1 PHYSICIAN CERTIFICATION: I certify the specified therapy services for Daniel Osorio are required, authorized, and reviewed every 30 days.
== END 2021-08-24 16:05 | disposition home or self-care (01) ==
LOC: PT 16:00
PROVIDERS: PCP Family Medicine; Visit Provider Orthopaedic Surgery
DX: M25.552 Pain in left hip (principal); Z96.642 Presence of left artificial hip joint
CPT/HCPCS: 97110; 97112; 97116; 97163; 97164; 97530

== ENCOUNTER → 2021-09-18 13:22 | Outpatient (CLI) | payer OTHER, SELFPAY ==
--- NOTE | 2021-09-18 13:25 | XR_ITS ---
FINAL REPORT CLINICAL HISTORY: lt total hip sp 06/25/2021 COMPARISON: August 07, 2021 FINDINGS: 2 views of the left hip were obtained. There are postoperative changes from left hip arthroplasty. There is a questionable nondisplaced horizontal fracture of the greater trochanter. IMPRESSION: Postoperative changes from left hip arthroplasty. Questionable nondisplaced dorsal fracture of the greater trochanter. Recommend follow-up radiographs. Reviewed, Interpreted and Dictated by Carmine Jefferson III, MD Transcribed by Raul Goodwin Authenticated by Carmine Jefferson III, MD on 09/18/2021 02:32:09 PM [facility]
== END ==
PROVIDERS: PCP Family Medicine; Visit Provider Physician Assistant Surgical
DX: M25.552 Pain in left hip (principal); Z96.642 Presence of left artificial hip joint
CPT/HCPCS: 73502

== ENCOUNTER → 2021-11-20 15:18 | Outpatient (CLI) | payer OTHER, SELFPAY ==
--- NOTE | 2021-11-20 15:20 | XR_ITS ---
FINAL REPORT CLINICAL HISTORY: s/p Lt BETY COMPARISON: 09/18/2021 FINDINGS: Left hip Three views were obtained. There is no acute fracture or dislocation. The patient is status post left hip arthroplasty. There is heterogeneous appearance of the right femoral head which is stable since previous worrisome for avascular necrosis. No soft tissue abnormality is identified. IMPRESSION: Findings worrisome for avascular necrosis of the right femoral head, stable from previous. If indicated, MRI could further evaluate. Reviewed, Interpreted and Dictated by Carmine Jefferson III, MD Transcribed by Mildred Couch Authenticated and [facility]
== END ==
PROVIDERS: PCP Family Medicine; Visit Provider Physician Assistant Surgical
DX: M25.552 Pain in left hip (principal); Z96.642 Presence of left artificial hip joint
CPT/HCPCS: 73502

== ENCOUNTER → 2022-06-19 15:18 | Outpatient (CLI) | payer OTHER, SELFPAY ==
--- NOTE | 2022-06-19 15:27 | XR_ITS ---
FINAL REPORT CLINICAL HISTORY: s/p hip replacement COMPARISON: 11/20/2021 FINDINGS: AP and frog leg views of the left hip were obtained. There are changes from left hip arthroplasty. The hardware appears intact. There is AVN of the right femoral head. There is now likely subchondral collapse on the right with degenerative disease. There is no acute soft tissue abnormality. IMPRESSION: No abnormality of the left hip. AVN of the right femoral head with subtle new subchondral collapse. Consider MRI. Reviewed, Interpreted and Dictated by Stephanie Carney MD Transcribed by Elly Vargas Authenticated and [facility]
== END ==
PROVIDERS: PCP Family Medicine; Visit Provider Physician Assistant Surgical
DX: M25.552 Pain in left hip (principal); Z96.642 Presence of left artificial hip joint
CPT/HCPCS: 73502

== ENCOUNTER → 2022-09-10 10:17 | Outpatient (POV) | payer OTHER, SELFPAY | PROVIDERS: Visit Provider Dermatology | DX: Z00.00 Encounter for general adult medical examination without abnormal findings (principal) ==

== ENCOUNTER 2023-12-25 08:43 | Day surgery (SDC) | payer BC, MEDICARE, OTHER, SELFPAY ==
[2023-12-23 13:38] VITALS: BMI 25.4
[2023-12-25 09:08] VITALS: BP 136/93; PULSE 70; RESP 16; TEMP 36.4; O2SAT 98
[2023-12-25 10:02] VITALS: O2SAT 98
--- NOTE | 2023-12-25 10:20 | EXP.ANES.CKL ---
[facility] Disclaimer: The information contained in this section may have been updated after the patient was seen, as this information can be updated by other users. Medical History Enlarged prostate High cholesterol Hypertension Surgical History History of hip replacement Social History Smoking Status: Former smoker tobacco type: cigars second hand exposure: No alcohol intake: never substance use type: denies use current occupational status: employed and retired Travel in the last 8 weeks: None household members: spouse housing: house current occupation: security at [employer] current occupational exposures/hazards: No caffeine: Yes [facility] Anesthesia Checklist Patient Identification Patient Identification: Arm Band Structural Data Admitted From: Home Planned Operative Procedure/s: Colonoscopy Consent for Planned Operative Procedure(s) Verified: Yes Verified Documents: Surgical Consent and History and Physical NPO Status Verified Time NPO: 00:00 Additional verifications Anesthesia Reactions: No Hx Blood Transfusions: No Blood Transfusion Reaction: No Airway Assessment Mallampati Score:: Class II C-Spine Mobility Assessed: Yes TMJ Mobility Assessed: Yes Dentition: Good Dentition Neurological Assessment Level of Consciousness: Awake, Alert and Appropriate Anesthesia Plan Anesthesia Risk discussed: Yes Anesthesia Plan: Verified ASA Class: II Anesthesia Type: MAC
--- NOTE | 2023-12-25 10:27 | P.PCN_ITS ---
Procedure: Date: 12/25/23 Patient Date of :: 1960 Procedure Performed:: Screening colonoscopy Indications:: History of polyps Performing Provider:: Portia Bonner MD Referring Provider:: Alisia Otero MD Sedation:: Propofol Procedure:: After placing the patient in the left lateral decubitus position, the colonoscopy was gently inserted into the rectum and under direct visualization advanced to the cecum which was identified by transillumination in the right lower quadrant, identification of the ileocecal valve, appendiceal orifice, and cecal strap. Color, texture, mucosa, and anatomy of the colon were carefully examined with the scope. Findings:: Anal canal: normal Rectum: normal Sigmoid colon: normal without polyps or inflammatory changes, scattered d iverticulosis Descending colon: normal without polyps or inflammatory changes Splenic flexure: normal Transverse colon: normal without polyps or inflammatory changes Hepatic flexure: normal Ascending colon: normal without polyps or inflammatory changes Cecum: normal Terminal ileum: not visualized Impression: Scattered sigmoid diverticulosis otherwise normal colonoscopy Recommendations:: Follow up examination in about FIVE years or so, sooner if clinically indicated in view of history of polyps. Complications:: None Estimated blood obtained (mL): 0 Colonoscopy Component Colonoscopy Component Was a colonoscopy performed during today's procedure?: Yes Recommended follow up colonoscopy of at least 10 years?: No If no, follow up colonoscopy recommended in ___ years?: Five Reason for not recommending >/= 10 yr follow-up interval?: History of polyps
[2023-12-25 10:28] VITALS: BP 98/60; PULSE 86; RESP 14; TEMP 36.2; O2SAT 98
[2023-12-25 10:38] VITALS: BP 97/61; PULSE 86; RESP 16; O2SAT 98
[2023-12-25 10:48] VITALS: BP 102/67; PULSE 88; RESP 16; O2SAT 97
[2023-12-25 10:58] VITALS: BP 105/69; PULSE 74; RESP 16; O2SAT 98
== END 2023-12-25 11:05 | disposition home or self-care (01) ==
PROVIDERS: PCP Family Medicine; Visit Provider Internal Medicine Gastroenterology
PROC: 0DJD8ZZ Inspection of Lower Intestinal Tract, Via Natural or Artificial Opening Endoscopic (ICD-10-PCS; CPT 45378; principal; 2023-12-25 10:00)
DX: Z86.010 Personal history of colon polyps (principal); K57.30 Diverticulosis of large intestine without perforation or abscess without bleeding
CPT/HCPCS: 45378; J7120